=== PATIENT | female | born 1995 | race Caucasian/White ===

== ENCOUNTER 2020-03-13 18:48 | Inpatient (IN) | payer MEDICAID, OTHER ==
--- NOTE | 2020-03-13 19:02 | ED ---
Psych HPI - General Stated Complaint: EPS Eval Time Seen by Provider: 03/13/20 18:48 Source: patient, EMS Mode of arrival: EMS - History of Present Illness Initial Comments: this is a 24-year-old female who has a history of depression and history of methamphetamine use who is brought in from a local drug treatment center with complaints of feeling depressed. She states she has not used meth in about 2 weeks she states she still feels very shaky and jittery she has cut herself with past nothing recent. She also states she was diagnosed with UTI about a week ago but was not treated with anything. She denies any other drugs or alcohol at this time no other modifying factors Complaint: feels depressed - Related Data Home Medications Medication Instructions Recorded Confirmed No Known Home Medications 03/13/20 03/13/20 Allergies Allergy/AdvReac Type Severity Reaction Status Date / Time sulfamethoxazole Allergy Unknown Verified 03/13/20 22:17 [From Bactrim] trimethoprim [From Bactrim] Allergy Unknown Verified 03/13/20 22:17 Review of Systems ROS Statement: Those systems with pertinent positive or pertinent negative responses have been documented in the HPI. ROS Other: All systems not noted in ROS Statement are negative. Past Medical History - Past Family History family Family Medical History: No Reported History General Exam - General Exam Comments Initial Comments: this is a well-developed sec appearing female was awake alert oriented 3 General appearance: alert, anxious Head exam: Present: atraumatic, normocephalic, normal inspection Eye exam: Present: normal appearance, PERRL, EOMI. Absent: scleral icterus, conjunctival injection, periorbital swelling ENT exam: Present: normal exam, mucous membranes moist Neck exam: Present: normal inspection. Absent: tenderness, meningismus, lymphadenopathy Respiratory exam: Present: normal lung sounds bilaterally. Absent: respiratory distress, wheezes, rales, rhonchi, stridor Cardiovascular Exam: Present: regular rate, normal rhythm, normal heart sounds. Absent: systolic murmur, diastolic murmur, rubs, gallop, clicks GI/Abdominal exam: Present: soft, normal bowel sounds. Absent: distended, tende rness, guarding, rebound, rigid Extremities exam: Present: normal inspection, full ROM, normal capillary refill. Absent: tenderness, pedal edema, joint swelling, calf tenderness Back exam: Present: normal inspection Neurological exam: Present: alert, oriented X3, CN II-XII intact Psychiatric exam: Present: depressed, anxious Skin exam: Present: warm, dry, intact, normal color. Absent: rash Course Vital Signs 03/13/20 03/13/20 19:11 20:21 Temperature 98.3 F Pulse Rate 78 75 Respiratory 16 Rate Blood Pressure 117/85 120/60 O2 Sat by Pulse 99 97 Oximetry - Reevaluation(s) Reevaluation #1: 03/13/20 21:05 the patient is medically cleared for EPS evaluation. Reevaluation #2: 03/13/20 21:32 The patient's care is endorsed to Dr. Albert shift change Medical Decision Making - Medical Decision Making patient was evaluated by the psychiatric department and admitted for inpatient treatment. - Lab Data Result diagrams: 03/14/20 08:32 03/14/20 08:32 Lab Results 03/13/20 03/13/20 03/13/20 Range/Units 20:14 20:14 20:14 WBC 6.1 (3.8-10.6) k/uL RBC 4.19 (3.80-5.40) m/uL Hgb 12.5 (11.4-16.0) gm/dL Hct 38.3 (34.0-46.0) % MCV 91.3 (80.0-100.0) fL MCH 29.9 (25.0-35.0) pg MCHC 32.8 (31.0-37.0) g/dL RDW 14.1 (11.5-15.5) % Plt Count 337 (150-450) k/uL Neutrophils % 53 % Lymphocytes % 38 % Monocytes % 4 % Eosinophils % 2 % Basophils % 1 % Neutrophils # 3.2 (1.3-7.7) k/uL Lymphocytes # 2.3 (1.0-4.8) k/uL Monocytes # 0.2 (0-1.0) k/uL Eosinophils # 0.1 (0-0.7) k/uL Basophils # 0.1 (0-0.2) k/uL Sodium (137-145) mmol/L Potassium (3.5-5.1) mmol/L Chloride (98-107) mmol/L Carbon Dioxide (22-30) mmol/L Anion Gap mmol/L BUN (7-17) mg/dL Creatinine (0.52-1.04) mg/dL Est GFR (CKD-EPI)AfAm (>60 ml/min/1.73 sqM) Est GFR (CKD-EPI)NonAf (>60 ml/min/1.73 sqM) Glucose (74-99) mg/dL Calcium (8.4-10.2) mg/dL Magnesium (1.6-2.3) mg/dL Total Bilirubin (0.2-1.3) mg/dL AST (14-36) U/L ALT (4-34) U/L Alkaline Phosphatase (38-126) U/L Creatine Kinase (30-135) U/L Total Protein (6.3-8.2) g/dL Albumin (3.5-5.0) g/dL Urine Color Colorless Urine Appearance Cloudy H (Clear) Urine pH 7.0 (5.0-8.0) Ur Specific Opp 1.006 (1.001-1.035) Urine Protein Negative (Negative) Urine Glucose (UA) Negative (Negative) Urine Ketones Negative (Negative) Urine Blood Negative (Negative) Urine Nitrite Negative (Negative) Urine Bilirubin Negative (Negative) Urine Urobilinogen <2.0 (<2.0) mg/dL Ur Leukocyte Esterase Moderate H (Negative) Urine RBC 2 (0-5) /hpf Urine WBC 10 H (0-5) /hpf Ur Squamous Epith Cells 13 H (0-4) /hpf Urine Bacteria Few H (None) /hpf Urine HCG, Qual Not Detected (Not Detectd) Urine Opiates Screen Not Detected (NotDetected) Ur Oxycodone Screen Not Detected (NotDetected) Urine Methadone Screen Not Detected (NotDetected) Ur Propoxyphene Screen Not Detected (NotDetected) Ur Barbiturates Screen Detected H (NotDetected) U Tricyclic Antidepress Not Detected (NotDetected) Ur Phencyclidine Scrn Not Detected (NotDetected) Ur Amphetamines Screen Not Detected (NotDetected) U Methamphetamines Scrn Not Detected (NotDetected) U Benzodiazepines Scrn Not Detected (NotDetected) Urine Cocaine Screen Not Detected (NotDetected) U Marijuana (THC) Screen Not Detected (NotDetected) 11/02/20 Range/Units 20:14 WBC (3.8-10.6) k/uL RBC (3.80-5.40) m/uL Hgb (11.4-16.0) gm/dL Hct (34.0-46.0) % MCV (80.0-100.0) fL MCH (25.0-35.0) pg MCHC (31.0-37.0) g/dL RDW (11.5-15.5) % Plt Count (150-450) k/uL Neutrophils % % Lymphocytes % % Monocytes % % Eosinophils % % Basophils % % Neutrophils # (1.3-7.7) k/uL Lymphocytes # (1.0-4.8) k/uL Monocytes # (0-1.0) k/uL Eosinophils # (0-0.7) k/uL Basophils # (0-0.2) k/uL Sodium 137 (137-145) mmol/L Potassium 4.7 (3.5-5.1) mmol/L Chloride 105 (98-107) mmol/L Carbon Dioxide 28 (22-30) mmol/L Anion Gap 4 mmol/L BUN 8 (7-17) mg/dL Creatinine 0.56 (0.52-1.04) mg/dL Est GFR (CKD-EPI)AfAm >90 (>60 ml/min/1.73 sqM) Est GFR (CKD-EPI)NonAf >90 (>60 ml/min/1.73 sqM) Glucose 86 (74-99) mg/dL Calcium 9.6 (8.4-10.2) mg/dL Magnesium 2.0 (1.6-2.3) mg/dL Total Bilirubin 0.4 (0.2-1.3) mg/dL AST 19 (14-36) U/L ALT 12 (4-34) U/L Alkaline Phosphatase 61 (38-126) U/L Creatine Kinase 42 (30-135) U/L Total Protein 7.4 (6.3-8.2) g/dL Albumin 4.4 (3.5-5.0) g/dL Urine Color Urine Appearance (Clear) Urine pH (5.0-8.0) Ur Specific Opp (1.001-1.035) Urine Protein (Negative) Urine Glucose (UA) (Negative) Urine Ketones (Negative) Urine Blood (Negative) Urine Nitrite (Negative) Urine Bilirubin (Negative) Urine Urobilinogen (<2.0) mg/dL Ur Leukocyte Esterase (Negative) Urine RBC (0-5) /hpf Urine WBC (0-5) /hpf Ur Squamous Epith Cells (0-4) /hpf Urine Bacteria (None) /hpf Urine HCG, Qual (Not Detectd) Urine Opiates Screen (NotDetected) Ur Oxycodone Screen (NotDetected) Urine Methadone Screen (NotDetected) Ur Propoxyphene Screen (NotDetected) Ur Barbiturates Screen (NotDetected) U Tricyclic Antidepress (NotDetected) Ur Phencyclidine Scrn (NotDetected) Ur Amphetamines Screen (NotDetected) U Methamphetamines Scrn (NotDetected) U Benzodiazepines Scrn (NotDetected) Urine Cocaine Screen (NotDetected) U Marijuana (THC) Screen (NotDetected) Disposition Clinical Impression: Depression, Post traumatic stress disorder, Substance abuse Disposition: TRANSFER TO PSYCH HOSP/UNIT Condition: Fair
[2020-03-13 20:34] LABS: Basophils # (A) 0.1 k/uL (0-0.2); Basophils % (A) 1 %; Eosinophils # (A) 0.1 k/uL (0-0.7); Eosinophils % (A) 2 %; HCT 38.3 % (34.0-46.0); HGB 12.5 gm/dL (11.4-16.0); Lymphocytes # (A) 2.3 k/uL (1.0-4.8); Lymphocytes % (A) 38 %; MCH 29.9 pg (25.0-35.0); MCHC 32.8 g/dL (31.0-37.0); MCV 91.3 fL (80.0-100.0); Mean Platelet Volume 6.3; Monocytes # (A) 0.2 k/uL (0-1.0); Monocytes % (A) 4 %; Neutrophils # (A) 3.2 k/uL (1.3-7.7); Neutrophils % (A) 53 %; Platelet Count 337 k/uL (150-450); RBC 4.19 m/uL (3.80-5.40); RDW 14.1 % (11.5-15.5); WBC 6.1 k/uL (3.8-10.6)
[2020-03-13 20:36] LABS: ALT 12 U/L (4-34); AST 19 U/L (14-36); African American GFR (CKD) >90 (>60 ml/min/1.73 sqM); Albumin 4.4 g/dL (3.5-5.0); Alkaline Phosphatase 61 U/L (38-126); Anion Gap 4 mmol/L; Blood Urea Nitrogen 8 mg/dL (7-17); Calcium 9.6 mg/dL (8.4-10.2); Carbon Dioxide 28 mmol/L (22-30); Chloride 105 mmol/L (98-107); Creatine Kinase 42 U/L (30-135); Glucose 86 mg/dL (74-99); Non-African American GFR(CKD) >90 (>60 ml/min/1.73 sqM); Potassium 4.7 mmol/L (3.5-5.1); Sodium 137 mmol/L (137-145); Total Bilirubin 0.4 mg/dL (0.2-1.3); Total Protein 7.4 g/dL (6.3-8.2)
[2020-03-13 20:44] LABS: Appearance,Urine Cloudy (Clear); Bacteria,Urine Few /hpf; Bilirubin,Urine Negative (Negative); Blood,Urine Negative (Negative); Color,Urine Colorless; Glucose,Urine (UA) Negative (Negative); Ketones,Urine Negative (Negative); Leukocyte Esterase,Urine Moderate (Negative); Nitrite,Urine Negative (Negative); Protein,Urine Negative (Negative); RBC,Urine 2 /hpf (0-5); Specific Gravity,Urine 1.006 (1.001-1.035); Squamous Epithelial Cell,Urine 13 /hpf (0-4); Urobilinogen,Urine <2.0 mg/dL (<2.0); WBC,Urine 10 /hpf (0-5)
[2020-03-13 21:02] LABS: Amphetamine Screen,Urine Not Detected (NotDetected); Barbiturate Screen,Urine Detected (NotDetected); Benzodiazepines Screen,Urine Not Detected (NotDetected); Cocaine Screen,Urine Not Detected (NotDetected); Methadone Screen, Urine Not Detected (NotDetected); Opiate Screen,Urine Not Detected (NotDetected); Oxycodone Screen, Urine Not Detected (NotDetected); Phencyclidine Screen,Urine Not Detected (NotDetected); Tricyclic Antidepressant,Urine Not Detected (NotDetected); Urn Cannabinoid Scrn Not Detected (NotDetected)
[2020-03-13] MEDS ORDERED: MAGNESIUM HYDROXIDE 2,400 MG/10 ML CUP PO PRN (22:30)
[2020-03-13] MEDS ORDERED: LORazepam 1 MG TAB PO PRN (22:30)
[2020-03-13] MEDS ORDERED: MAG HYDROX/AL HYDROX/SIMETH 30 ML CUP PO PRN (22:30)
[2020-03-13] MEDS ORDERED: LORazepam 2 MG/ML INJ IM PRN (22:34)
[2020-03-13] MEDS: NICOTINE 14MG/24HR PATCH TRANSDERM SCH (23:23)
[2020-03-14] MEDS: MELATONIN 3 MG TABLET PO SCH ×2 (00:05→21:34)
[2020-03-14] MEDS: ZIPRASIDONE 20 MG VIAL IM PRN ×2 (00:40→14:46)
--- NOTE | 2020-03-14 03:03 | P.MDCNMH ---
History of Present Illness H&P Date: 03/14/20 Chief Complaint: medical evaluation 24 year old female with depression and anxiety patient was sent in here from [place] [facility], she admits to abusing drugs, like meth and heroin. last use about 3 weeks ago . she currently feels very depressed and irritated. she admits to self harming thoughts and tried to cut her self but nothing recent she denies any acute medical complaints. he reported some instability in her right hip which is chronic in nature that results in pain at times. otherwise denies any fever, chills, nausea vomiting, changes in her urine or bowel habits. Review of Systems Pertinent positives as noted in HPI. All other systems were reviewed and are negative Past Medical History Past Medical History: No Reported History History of Any Multi-Drug Resistant Organisms: None Reported Past Surgical History: No Surgical Hx Reported Past Anesthesia/Blood Transfusion Reactions: No Reported Reaction Past Psychological History: ADD/ADHD, Anxiety, Bipolar, Depression, PTSD Smoking Status: Current every day smoker Past Alcohol Use History: Abuse Past Drug Use History: Heroin, IV Drug Use, Marijuana, Methamphetamine - Past Family History family Family Medical History: No Reported History Medications and Allergies Home Medications Medication Instructions Recorded Confirmed Type No Known Home Medications 03/13/20 03/13/20 History Allergies Allergy/AdvReac Type Severity Reaction Status Date / Time sulfamethoxazole Allergy Unknown Verified 03/13/20 22:17 [From Bactrim] trimethoprim [From Bactrim] Allergy Unknown Verified 03/13/20 22:17 Physical Exam Vitals: Vital Signs Temp Pulse Pulse Resp BP BP Pulse Ox 03/14/20 00:10 97.2 F L 85 16 116/85 96 03/13/20 20:21 75 120/60 97 03/13/20 19:11 98.3 F 78 16 117/85 99 Intake and Output 03/13/20 03/13/20 03/14/20 14:59 22:59 06:59 Other: Weight 49.895 kg 50.439 kg Constitutional: No acute distress, conversant, anxious Eyes: Anicteric sclerae, moist conjunctiva, Pupils equal round reactive to light ENMT: NC/AT Oropharynx clear, no erythema,or exudates Neck: Supple, FROM, no masses, or JVD No carotid bruits No thyromegaly Lungs: Clear to auscultation Clear to percussion Normal respiratory effort, no accessory muscle use Cardiovascular: Heart regular in rate and rhythm, No murmurs, gallops, or rubs No peripheral edema Abdominal: Soft Nontender, no guarding, rebound or rigidity Abdomen moving with respiration Normoactive bowel sounds No hepatomegaly, No splenomegaly No palpable mass No abdominal wall hernia noted Skin: Normal temperature, tone, texture, turgor No induration No subcutaneous nodules No rash, lesions No ulcers Extremities: No digital cyanosis No clubbing Pedal pulses intact and symmetrical Radial pulses intact and symmetrical No calf tenderness Psychiatric: Alert and oriented to person, place and time Appropriate affect fair judgement Neuro Muscles Strength 5/5 in all 4 extremities Sensation to light touch grossly present throughout Cranial nerves II-XII grossly intact No focal sensory deficits Lymphatics: no palpable cervical or supraclavicular , or inguinal lymph nodes Cranial Nerve Examination - Cranial Nerves Cranial Nerve II- Optic: Intact Cranial Nerve III- Oculomotor: Intact Cranial Nerve IV- Trochlear: Intact Cranial Nerve V- Trigeminal: Intact Cranial Nerve - Abducens: Intact Cranial Nerve VII- Facial: Intact Cranial Nerve VIII- Auditory: Intact Cranial Nerve IX- Glossopharyngeal: Intact Cranial Nerve X- Vagus: Intact Cranial Nerve XI- Accessory: Intact Cranial Nerve XII- Hypoglossal: Intact Results CBC & Chem 7: 03/13/20 20:14 03/13/20 20:14 Labs: Abnormal Lab Results - Last 24 Hours (Table) 03/13/20 Range/Units 20:14 Urine Appearance Cloudy H (Clear) Ur Leukocyte Esterase Moderate H (Negative) Urine WBC 10 H (0-5) /hpf Ur Squamous Epith Cells 13 H (0-4) /hpf Urine Bacteria Few H (None) /hpf Ur Barbiturates Screen Detected H (NotDetected) Assessment and Plan Assessment: depression and anxiety suicidal ideation management per psych chronic right hip instability consider OP follow up and consultation with orthopedics labs reviewed Thank you for allowing us to participate in the care of this patient. We will follow peripherally. Do not hesitate to contact us with questions. Someone can be reached from the [facility] hospitalist group at all hours of the day at [phone].
[2020-03-14 08:47] LABS: Basophils # (A) 0.1 k/uL (0-0.2); Basophils % (A) 2 %; Eosinophils # (A) 0.2 k/uL (0-0.7); Eosinophils % (A) 4 %; HCT 39.6 % (34.0-46.0); Lymphocytes # (A) 1.8 k/uL (1.0-4.8); Lymphocytes % (A) 39 %; MCH 30.4 pg (25.0-35.0); MCHC 32.7 g/dL (31.0-37.0); Monocytes # (A) 0.2 k/uL (0-1.0); Monocytes % (A) 4 %; Neutrophils # (A) 2.3 k/uL (1.3-7.7); Neutrophils % (A) 49 %; Platelet Count 314 k/uL (150-450); RBC 4.26 m/uL (3.80-5.40); RDW 14.2 % (11.5-15.5); WBC 4.6 k/uL (3.8-10.6)
[2020-03-14] MEDS: NICOTINE 14MG/24HR PATCH TRANSDERM SCH (08:49)
[2020-03-14 09:00] LABS: ALT 11 U/L (4-34); AST 17 U/L (14-36); African American GFR (CKD) >90 (>60 ml/min/1.73 sqM); Albumin 3.9 g/dL (3.5-5.0); Alkaline Phosphatase 51 U/L (38-126); Anion Gap 3 mmol/L; Blood Urea Nitrogen 10 mg/dL (7-17); Calcium 9.1 mg/dL (8.4-10.2); Carbon Dioxide 29 mmol/L (22-30); Chloride 108 mmol/L (98-107); Cholesterol 181 mg/dL (<200); Glucose 90 mg/dL (74-99); HDL Cholesterol 78 mg/dL (40-60); LDL Cholesterol,Calculated 92 mg/dL (0-99); Non-African American GFR(CKD) >90 (>60 ml/min/1.73 sqM); Sodium 140 mmol/L (137-145); Total Bilirubin 0.4 mg/dL (0.2-1.3); Total Protein 6.6 g/dL (6.3-8.2); Triglycerides 54 mg/dL (<150)
[2020-03-14] MEDS ORDERED: hydrOXYzine HCL 50 MG/ML 1 ML VIAL IM PRN (10:08)
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
[2020-03-14] MEDS: ACETAMINOPHEN TAB 325 MG TAB PO PRN (10:54)
[2020-03-14] MEDS: hydrOXYzine pamoate 25 MG CAP PO PRN (10:55)
[2020-03-14] MEDS: NICOTINE 21MG/24HR PATCH TRANSDERM SCH (13:36)
[2020-03-14 16:18] LABS: Hemoglobin A1C 4.7 % (4.0-6.0)
[2020-03-14] MEDS: PRAZOSIN 1 MG CAP PO SCH (19:46)
[2020-03-15] MEDS: FLUoxetine HCL 20 MG CAP PO SCH (08:14)
[2020-03-15] MEDS: NICOTINE 21MG/24HR PATCH TRANSDERM SCH (08:14)
[2020-03-15] MEDS: ARIPiprazole 10 MG TAB PO SCH (08:14)
[2020-03-15] MEDS ORDERED: NICOTINE 21MG/24HR PATCH TRANSDERM SCH (09:00)
[2020-03-15] MEDS: hydrOXYzine pamoate 25 MG CAP PO PRN (09:10)
[2020-03-15] MEDS: IBUPROFEN 600 MG TAB PO PRN (09:10)
[2020-03-15] MEDS: MULTIVITAMINS, THERA 1 EACH TAB PO SCH (09:10)
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
--- NOTE | 2020-03-15 12:24 | P.PN ---
Progress Note - Text Progress Note Date: 03/15/20 Interval History: Patient was seen wandering the hallways and was directable and agreeable to speak with feature writer in the office. Patient reports that she is doing well. She is not endorsing any significant suicidal or homicidal ideation, intention, and/or plan. She reports that she was able to sleep well last night. She denies any issues with appetite. She is not reporting any auditory or visual hallucinations. She's been in adherent with her medications and denies any side effects at this time. She reports that she feels that she is ready to go. Mental Status Exam: General Appearance: Patient appears to be stated age is alert, directable, and cooperative. Behavior: Patient is calmly seated without any agitated behavior. Speech: Patient's speech is fluent and nonpressured. Mood/Affect: Mood is improving mildly, affect is congruent and constricted. Suicidality/Homicidality: Patient denies having any suicidal or homicidal ideation intent or plan. Perceptions: Patient denies any visual hallucinations and denies any auditory hallucinations Though content/process: There is no evidence of any delusional thought content and thought process is linear and goal-directed. Memory and concentration: AOX3, grossly intact for the purposes of this session Judgment and insight: Improving mildly Assessment Major depressive disorder, recurrent, moderate, with anxious features Posttraumatic stress disorder Methamphetamine use disorder Heroin use disorder Tobacco use disorder Plan: -Patient continues to meet criteria for inpatient psychiatric admission for symptom stabilization and safety. Patient has signed adult voluntary form and medication consent and was placed in patient's chart. -Medications: Continue Prozac 20 mg by mouth daily for depression/anxiety/PTSD Continue Abilify 10 mg by mouth daily for mood augmentation/stabilization/impulsively Continue prazosin 2 mg by mouth at bedtime for PTSD related nightmares Continue Vistaril when necessary for anxiety. -When necessary Geodon for agitation/aggression. -NRT - nicotine patch -SW on board for discharge planning. Encouraged the patient to participate in milieu. Estimated discharge in 1-2 days. Patient is to go to rehab with [facility].
[2020-03-15] MEDS: PRAZOSIN 1 MG CAP PO SCH (20:13)
[2020-03-15] MEDS: MELATONIN 3 MG TABLET PO SCH (20:13)
[2020-03-15] MEDS: ACETAMINOPHEN TAB 325 MG TAB PO PRN (20:14)
[2020-03-16 08:41] VITALS: BP 122/71; PULSE 124; RESP 16
[2020-03-16] MEDS: FLUoxetine HCL 20 MG CAP PO SCH (09:02)
[2020-03-16] MEDS: ARIPiprazole 10 MG TAB PO SCH (09:02)
[2020-03-16] MEDS: NICOTINE 21MG/24HR PATCH TRANSDERM SCH (09:02)
[2020-03-16] MEDS: MULTIVITAMINS, THERA 1 EACH TAB PO SCH (09:02)
[2020-03-16] MEDS: IBUPROFEN 600 MG TAB PO PRN (09:34)
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
[2020-03-16 14:17] VITALS: TEMP 98
== END 2020-03-16 14:41 | DRG 885 ==
LOC: EC 18:48 → 3MHU 22:20
PROVIDERS: ADMIT Psychiatry & Neurology Psychiatry; ATTEND Psychiatry & Neurology Psychiatry
DX: F33.9 Major depressive disorder, recurrent, unspecified (principal); R45.851 Suicidal ideations; F11.10 Opioid abuse, uncomplicated; F15.10 Other stimulant abuse, uncomplicated; F17.210 Nicotine dependence, cigarettes, uncomplicated; F43.10 Post-traumatic stress disorder, unspecified; Z59.0 Homelessness; Z56.0 Unemployment, unspecified; M25.351 Other instability, right hip; Z91.5 Personal history of self-harm; Z81.1 Family history of alcohol abuse and dependence; Z62.810 Personal history of physical and sexual abuse in childhood; Z88.2 Allergy status to sulfonamides
CPT/HCPCS: 36415; 80053; 80061; 80306; 81001; 81025; 82075; 82550; 83036; 83735; 84443; 85025; 99285

== ENCOUNTER 2020-03-23 18:13 | Emergency (ER) | payer OTHER ==
[2020-03-23 18:30] VITALS: TEMP 98.3
--- NOTE | 2020-03-23 18:31 | ED ---
Psych HPI - General Source: patient, EMS, RN notes reviewed, old records reviewed Mode of arrival: EMS - History of Present Illness MD Complaint: suicidal ideation, feels depressed, other <Calixto Pedersen - Last Filed: 03/23/20 20:40> <Jose Molina - Last Filed: 03/24/20 03:32> - General Stated Complaint: psych eval Time Seen by Provider: 03/23/20 18:13 - History of Present Illness Initial Comments: this a 24-year-old female with a history depression and anxiety post medic stress disorder heroin and methamphetamine abuse who is brought in by EMS [place]. She apparently was contemplating going into the water. She is very anxious and tearful during questioning. She had recently been using medications. Apparently has not been on the Suboxone and she was on for 3 days. She is status she is here to be a heel or and she wants to medicate. She is here in petition by [facility] Department officer. (Calixto Pedersen) - Related Data Home Medications Medication Instructions Recorded Confirmed Multivitamins, Thera [Multivitamin 1 tab PO DAILY 03/23/20 03/23/20 (formulary)] hydrOXYzine pamoate [Vistaril] 50 mg PO Q6H PRN 03/23/20 03/23/20 Previous Rx's Medication Instructions Recorded ARIPiprazole [Abilify] 10 mg PO DAILY 30 Days tab 03/15/20 FLUoxetine HCL [PROzac] 20 mg PO DAILY 30 Days cap 03/15/20 Ibuprofen [Motrin] 600 mg PO Q8H PRN 7 Days tab 03/15/20 Melatonin 3 mg PO HS 30 Days tablet 03/15/20 Nicotine 21Mg/24Hr Patch [Habitrol] 1 patch TRANSDERM DAILY 30 Days 03/15/20 patch Prazosin [Minipress] 2 mg PO HS 30 Days cap 03/15/20 Allergies Allergy/AdvReac Type Severity Reaction Status Date / Time sulfamethoxazole Allergy Unknown Verified 03/23/20 19:13 [From Bactrim] trimethoprim [From Bactrim] Allergy Unknown Verified 03/23/20 19:13 Review of Systems ROS Other: All systems not noted in ROS Statement are negative. Limitations: ROS unobtainable due to patients medical condition <Calixto Pedersen - Last Filed: 03/23/20 20:40> ROS Other: All systems not noted in ROS Statement are negative. <Jose Molina - Last Filed: 03/24/20 03:32> ROS Statement: Those systems with pertinent positive or pertinent negative responses have been documented in the HPI. Past Medical History Past Medical History: No Reported History History of Any Multi-Drug Resistant Organisms: None Reported Past Surgical History: No Surgical Hx Reported Past Anesthesia/Blood Transfusion Reactions: No Reported Reaction Past Psychological History: ADD/ADHD, Anxiety, Bipolar, Depression, PTSD Smoking Status: Current every day smoker Past Alcohol Use History: Abuse Past Drug Use History: Heroin, IV Drug Use, Marijuana, Methamphetamine - Past Family History family Family Medical History: No Reported History <Calixto Pedersen - Last Filed: 03/23/20 20:40> General Exam General appearance: alert, anxious, in distress Head exam: Present: atraumatic, normocephalic, normal inspection Eye exam: Present: normal appearance, PERRL, EOMI. Absent: scleral icterus, conjunctival injection, periorbital swelling ENT exam: Present: normal exam, mucous membranes moist Neck exam: Present: normal inspection, full ROM. Absent: tenderness, meningismus, lymphadenopathy Respiratory exam: Present: normal lung sounds bilaterally. Absent: respiratory distress, wheezes, rales, rhonchi, stridor Cardiovascular Exam: Present: normal rhythm, normal heart sounds. Absent: systolic murmur, diastolic murmur, rubs, gallop, clicks GI/Abdominal exam: Present: soft, normal bowel sounds. Absent: distended, tenderness, guarding, rebound, rigid Extremities exam: Present: full ROM, normal capillary refill, other (some bruising with multiple needle choudhary seen in the right antecubital space. Oh evidence of active bleeding or formed body). Absent: tenderness, pedal edema, joint swelling, calf tenderness Back exam: Present: normal inspection Neurological exam: Present: alert, oriented X3, CN II-XII intact Psychiatric exam: Present: depressed, anxious, suicidal ideation Skin exam: Present: warm, dry, intact, normal color. Absent: rash <Calixto Pedersen - Last Filed: 03/23/20 20:40> - General Exam Comments Initial Comments: is a well-developed asthenic appearing female who is awake alert anxious demonstrating flight's of ideas. (Calixto Pedersen) Course <Calixto Pedersen - Last Filed: 03/23/20 20:40> Vital Signs 03/23/20 18:16 Temperature 98.3 F Pulse Rate 116 H Respiratory 22 Rate Blood Pressure 132/90 O2 Sat by Pulse 99 Oximetry - Reevaluation(s) Reevaluation #1: 03/23/20 20:40 The patient require sedation and was given the same. She is resting comfortably psychiatric evaluation is pending in the a.m. (Calixto Pedersen) Disposition <Calixto Pedersen - Last Filed: 03/23/20 20:40> Is patient prescribed a controlled substance at d/c from ED?: No <Jose Molina - Last Filed: 03/24/20 03:32> Clinical Impression: Anxiety disorder, unspecified Disposition: HOME SELF-CARE Condition: Good Instructions (If sedation given, give patient instructions): Anxiety (ED) Referrals: None,Stated [Primary Care Provider] - 1-2 days
[2020-03-23] MEDS ORDERED: ZIPRASIDONE 20 MG VIAL IM STA (19:01)
[2020-03-23] MEDS ORDERED: LORazepam 2 MG/ML INJ IM STA (19:02)
[2020-03-23] MEDS ORDERED: diphenhydrAMINE 50 MG/ML 1 ML VIAL IM STA (19:03)
[2020-03-24 04:03] VITALS: BP 101/51; PULSE 91; RESP 16
== END 2020-03-24 03:59 | disposition home or self-care (01) ==
LOC: EC 18:13
DX: F41.9 Anxiety disorder, unspecified (principal); R45.851 Suicidal ideations; Z88.1 Allergy status to other antibiotic agents; Z88.2 Allergy status to sulfonamides; F17.200 Nicotine dependence, unspecified, uncomplicated
CPT/HCPCS: 82075; 99285; 96372 ×3; J2060; J1200; J3486

== ENCOUNTER 2020-03-24 15:13 | Emergency (ER) | payer OTHER ==
--- NOTE | 2020-03-24 15:42 | ED ---
General Adult HPI - General Chief complaint: Psychiatric Symptoms Stated complaint: Mental Health Time Seen by Provider: 03/24/20 15:16 Source: patient, EMS Mode of arrival: EMS Limitations: no limitations - History of Present Illness Initial comments: Dictation was produced using [employer] dictation software. please excuse any grammatical, word or spelling errors. This patient was cared for during a federal and state declared state of emergency secondary to Covid 19 Chief Complaint: 24-year-old male presents with depression and anxiety History of Present Illness: 24-year-old female she has past medical history of illicit drug abuse. Patient reports that she was [place] here via [place] the [place]. She is currently very anxious about her life situation. She is stressed out about her family. Patient was here in emergency department yesterday at evaluate by EPS for suicidal ideation and feelings of depression. She was seen and evaluated discharge. She denies any homicidal ideation. Denies any suicidal ideation currently. No visual or auditory hallucinations. The ROS documented in this emergency department record has been reviewed and confirmed by me. Those systems with pertinent positive or negative responses have been documented in the HPI. All other systems are other negative and/or noncontributory. PHYSICAL EXAM: General Impression: Alert and oriented x3, not in acute distress HEENT: Normocephalic atraumatic, extra-ocular movements intact, pupils equal and reactive to light bilaterally, mucous membranes moist. Cardiovascular: Heart regular rate and rhythm Chest: Able to complete full sentences, no retractions, no tachypnea Abdomen: abdomen soft, non-tender, non-distended, no organomegaly Musculoskeletal: Pulses present and equal in all extremities, no peripheral edema Motor: no focal deficits noted Neurological: CN II-XII grossly intact, no focal motor or sensory deficits noted Skin: Intact with no visualized rashes Psych: Anxious ED course: 24-year-old female presents with anxiety and depression. She was just recently seen and evaluated here in emergency department yesterday. She was discharged after evaluation by emergency psych services. Vital signs upon arrival are within acceptable limits. We will request that EPS evaluate patient again. Patient is reevaluated by EPS and recommended discharge. She is given long term information. Agreeable to disposition. Patient continues to not complaining of any suicidal or homicidal ideation. She is not showing any signs of psychosis. No visual auditory hallucinations. She is cooperative at time of discharge. - Related Data Home Medications Medication Instructions Recorded Confirmed Multivitamins, Thera [Multivitamin 1 tab PO DAILY 03/23/20 03/23/20 (formulary)] hydrOXYzine pamoate [Vistaril] 50 mg PO Q6H PRN 03/23/20 03/23/20 Previous Rx's Medication Instructions Recorded ARIPiprazole [Abilify] 10 mg PO DAILY 30 Days tab 03/15/20 FLUoxetine HCL [PROzac] 20 mg PO DAILY 30 Days cap 03/15/20 Ibuprofen [Motrin] 600 mg PO Q8H PRN 7 Days tab 03/15/20 Melatonin 3 mg PO HS 30 Days tablet 03/15/20 Nicotine 21Mg/24Hr Patch [Habitrol] 1 patch TRANSDERM DAILY 30 Days 03/15/20 patch Prazosin [Minipress] 2 mg PO HS 30 Days cap 03/15/20 Allergies Allergy/AdvReac Type Severity Reaction Status Date / Time sulfamethoxazole Allergy Unknown Verified 03/23/20 19:13 [From Bactrim] trimethoprim [From Bactrim] Allergy Unknown Verified 03/23/20 19:13 Review of Systems ROS Statement: Those systems with pertinent positive or pertinent negative responses have been documented in the HPI. ROS Other: All systems not noted in ROS Statement are negative. Past Medical History Past Medical History: No Reported History History of Any Multi-Drug Resistant Organisms: None Reported Past Surgical History: No Surgical Hx Reported Past Anesthesia/Blood Transfusion Reactions: No Reported Reaction Past Psychological History: ADD/ADHD, Anxiety, Bipolar, Depression, PTSD Smoking Status: Current every day smoker Past Alcohol Use History: Abuse Past Drug Use History: Heroin, IV Drug Use, Marijuana, Methamphetamine - Past Family History family Family Medical History: No Reported History General Exam Limitations: no limitations Course Vital Signs 03/24/20 15:14 Temperature 98.6 F Pulse Rate 64 Respiratory 16 Rate Blood Pressure 113/75 O2 Sat by Pulse 97 Oximetry Disposition Clinical Impression: Anxiety Disposition: HOME SELF-CARE Condition: Good Instructions (If sedation given, give patient instructions): Stress (ED) Is patient prescribed a controlled substance at d/c from ED?: No Referrals: None,Stated [Primary Care Provider] - 1-2 days Time of Disposition: 18:22
[2020-03-24 18:57] VITALS: BP 116/75; PULSE 99; RESP 18; TEMP 98.3
== END 2020-03-24 18:57 | disposition home or self-care (01) ==
LOC: EC 15:13
DX: F41.9 Anxiety disorder, unspecified (principal); F32.9 Major depressive disorder, single episode, unspecified; F17.200 Nicotine dependence, unspecified, uncomplicated; F19.10 Other psychoactive substance abuse, uncomplicated; Z88.2 Allergy status to sulfonamides; Z88.1 Allergy status to other antibiotic agents
CPT/HCPCS: 82075; 99284